=== PATIENT | male | born 1970 | race African-American/Black ===

== ENCOUNTER 2023-10-14 04:03 | Emergency (ER) | payer BC ==
[2023-10-14 07:08] LABS: Absolute Eosinophils 0.1 K/uL (0-0.5); Absolute Lymphocytes (CBC) 1.1 K/uL (0.7-4.9); Absolute Neutrophil 11.7 K/uL (1.8-8.0); Basophils % 0.1 % (0-1.3); Eosinophils % 0.5 % (0-4.4); Hematocrit 44.7 % (39.6-49.0); Hemoglobin 14.6 g/dL (13.6-17.9); Lymphocytes % 7.8 % (15.3-44.8); MCHC 32.6 g/dL (32.0-36.0); MCV 82.7 fL (80-100); MPV 9.3 fL (7.6-11.3); Monocytes % 7.4 % (3.3-12.3); Neutrophils % 84.2 % (41.7-73.7); Platelets 260 thou/uL (152-406); Red Cell Distribution Width 15.5 % (12.1-15.2)
[2023-10-14 07:10] LABS: Albumin 3.7 g/dL (3.4-5.0); Albumin/Globulin Ratio 0.8 (1.1-1.8); Anion Gap 9.6 mEq/L (5.0-15.0); Bilirubin Total 0.4 mg/dL (0.2-1.0); Globulin 4.5 g/dL (2.3-3.5); Potassium 3.6 mEq/L (3.5-5.1); Protein, Total 8.2 g/dL (6.4-8.2); Specific Gravity 1.028 (1.005-1.030); Sqamous Epithelial None Seen /HPF (None Seen); Urine Bacteria None Seen /HPF (<20); Urine Bilirubin NEGATIVE (Negative); Urine Blood 2+ (Negative); Urine Clarity Clear (Clear); Urine Color Yellow (Yellow); Urine Culture Reflex Order NOT NEEDED; Urine Glucose NEGATIVE (Negative); Urine Ketones 2+ (Negative); Urine Microscopic Reflex YN ORDER UMIC; Urine Mucus 2+ /HPF (None Seen); Urine Nitrite NEGATIVE (Negative); Urine Protein TRACE (Negative); Urine RBC 21-50 /HPF (None Seen); Urine Urobilinogen Normal (Normal); Urine WBC <5 /HPF (<5)
--- NOTE | 2023-10-14 08:07 | RAD REPORT ---
EXAM DESCRIPTION: CT - Abdomen Pelvis W Contrast - 10/14/2023 7:27 am CLINICAL HISTORY: ABD PAIN COMPARISON: No comparisons TECHNIQUE: Thin cut axial CT imaging of the abdomen and pelvis was performed following intravenous a dministration of 100 mL Isovue 300. Multiplanar reformats were generated and reviewed. All CT scans are performed using dose optimization technique as appropriate and may include automated exposure control or mA/KV adjustment according to patient size. FINDINGS: No suspicious findings in the lung bases. The liver, spleen, adrenal glands, and pancreas show no suspicious findings. Gallbladder and biliary tree are also without suspicious finding. Symmetric renal function is seen with no hydronephrosis or suspicious renal mass. Along the left dist al ureter. The vesicoureteral junction, a 2 mm calculus is noted, without significant hydro ureter. F luid density right mid to lower pole anterior 2.4 cm cyst, benign in appearance. Sequelae of gastric bypass. No dilated bowel loops or bowel wall thickening. Appendix is unremarkable . No free air, free fluid or inflammatory stranding. No hernia, mass or bulky lymphadenopathy. The ur inary bladder is without significant finding. No suspicious bony findings. Left hip arthroplasty hardware resulting in streak artifact which limits evaluation. IMPRESSION: Likely nonobstructing left distal ureter 2 mm calculus near the vesicoureteral junction, without appreciable hydroureteronephrosis. No other acute intra- abdominal process.
--- NOTE | 2023-10-14 08:16 | ER ---
Nurse's Notes [facility] Name: Manolo Cole Age: 53 yrs Sex: Male : 1970 Arrival Date: 10/14/2023 Time: 04:03 Bed 8 Private MD: Diagnosis: Calculus of ureter Presentation: 10/13 04:48 Chief complaint: Patient states: stomach pain, n/v since yesterday. Coronavirus screen: vc1 Vaccine status: Client presents with at least one sign or symptom that may indicate coronavirus-19. Client reports previous positive COVID test result. Date of collection: October 12, 2023 Staff notified of need for isolation. Ebola Screen: Patient negative for fever greater than or equal to 101.5 degrees Fahrenheit, and additional compatible Ebola Virus Disease symptoms Patient denies exposure to infectious person. Patient denies travel to an Ebola-affected area in the 21 days before illness onset. No symptoms or risks identified at this time. Risk Assessment: Do you want to hurt yourself or someone else? Patient reports no desire to harm self or others. Onset of symptoms was October 13, 2023. 04:48 Method Of Arrival: Ambulatory vc1 04:48 Acuity: VIN 3 vc1 04:55 Initial Sepsis Screen: Does the patient meet any 2 criteria? No. Patient's initial jw7 sepsis screen is negative. Does the patient have a suspected source of infection? No. Patient's initial sepsis screen is negative. Triage Assessment: 04:52 General: Appears in no apparent distress. uncomfortable, obese, Behavior is calm, vc1 cooperative, appropriate for age. Pain: Complains of pain in anterior aspect of right lateral abdomen Pain does not radiate. Pain currently is 10 out of 10 on a pain scale. Quality of pain is described as sharp, Pain began suddenly, 1 day ago. Is intermittent. Neuro: Level of Consciousness is awake, alert, obeys commands, Oriented to person, place, time, situation, Appropriate for age. Cardiovascular: Patient's skin is warm and dry. Respiratory: Airway is patent Respiratory effort is even, unlabored, Respiratory pattern is regular, symmetrical. GI: Abdomen is round non-distended, Reports lower abdominal pain, upper abdominal pain, constipation, intolerance of fluids, intolerance of food, nausea, vomiting. : Reports inability to void, urgency. Historical: - Allergies: 04:50 No Known Allergies; vc1 - Home Meds: 04:50 valsartan oral [Active]; semiglutide [Active]; vc1 - PMHx: 04:50 Hypertensive disorder; vc1 - PSHx: 04:50 gastric sleeve; vc1 - Immunization history:: Adult Immunizations unknown. - Infectious Disease History:: Denies. - Social history:: Smoking status: Patient denies any tobacco usage or history of. - Family history:: not pertinent. Screenin:[address] [facility] ED Fall Risk Assessment (Adult) History of falling in the last 3 months, vc1 including since admission No falls in past 3 months (0 pts) Confusion or Disorientation No (0 pts) Intoxicated or Sedated No (0 pts) Impaired Gait No (0 pts) Mobility Assist Device Used No (0 pt) Altered Elimination No (0 pt) Score/Fall Risk Level 0 - 2 = Low Risk Oriented to surroundings, Maintained a safe environment, Educated pt \T\ family on fall prevention, incl call for assistance when getting out of bed. Abuse screen: Denies threats or abuse. Nutritional screening: No deficits noted. Tuberculosis screening: No symptoms or risk factors identified. Assessment: 04:55 General: Appears in no apparent distress. comfortable, Behavior is calm, cooperative, jj7 appropriate for age. Pain: Denies pain. GI: Abdomen is obese, Abd is soft and non tender X 4 quads. Abd is non tender X 4 quads Reports upper abdominal pain, nausea, vomiting. 06:13 Reassessment: Patient appears in no apparent distress at this time. No changes from jw7 previously documented assessment. Patient and/or family updated on plan of care and expected duration. Pain level reassessed. Patient is alert, oriented x 3, equal unlabored respirations, skin warm/dry/pink. Vital Signs: 04:48 BP 141 / 74; Pulse 82; Resp 16; Temp 97.5; Pulse Ox 97% ; Weight 147.42 kg; Height 5 jj7 ft. 11 in. ; Pain 10/10; 05:59 BP 129 / 79; Pulse 79; Resp 19; Pulse Ox 96% ; jj7 08:46 BP 132 / 78; Pulse 85; Resp 18; Temp 98; Pulse Ox 99% on R/A; ph 04:48 Body Mass Index 45.33 (147.42 kg, 180.34 cm) jj7 04:48 Pain Scale: Adult jj7 ED Course: 04:15 Patient arrived in ED. gm2 04:17 Wilton Mcintosh MD is Attending Physician. sp4 04:50 Triage completed. vc1 04:52 Arm band placed on left wrist. vc1 04:55 Patient has correct armband on for positive identification. Bed in low position. Call jw7 light in reach. Provided Education on: Use of Call Light. 04:55 Inserted saline lock: 20 gauge in right antecubital area, using aseptic technique. jj7 Blood collected. 05:00 Initial lab(s) drawn, by ms, sent to lab. Urine collected: clean catch specimen, clear. jj7 07:12 Report given to ARIANNA DIANE. jj7 07:16 Attending Physician role handed off by Wilton Mcintosh MD ec2 07:16 Nestor Smith MD is Attending Physician. ec2 07:28 CT Abd/Pelvis - IV Contrast Only In Process Unspecified. EDMS 08:16 Israel Madden MD is Referral Physician. ec2 08:29 Cathryn Guillen, BENEDICTO is Primary Nurse. ph 08:46 No provider procedures requiring assistance completed. IV discontinued, intact, ph bleeding controlled, No redness/swelling at site. Pressure dressing applied. Administered Medications: 05:00 Drug: NS 0.9% IV 1000 ml IV at 1 bolus Per protocol; 1000 mL bolus Route: IV; Rate: 1 jj7 bolus; Site: right antecubital; 06:51 Follow up: Response: No adverse reaction; IV Status: Completed infusion; IV Intake: jw7 1000ml 05:00 Drug: Ondansetron IVP 4 mg IVP once; over 2 minutes Route: IVP; Site: right antecubital;jj7 06:51 Follow up: Response: No adverse reaction; Marked relief of symptoms; Nausea is decreasedjw7 08:35 Drug: morphine IVP or IV 4 mg IVP once over 4 mins Route: IVP; Infused Over: 4 mins; ph Site: right antecubital; 08:45 Follow up: Response: No adverse reaction ph 08:35 Drug: Ketorolac IVP 15 mg IVP once Route: IVP; Site: left antecubital; ph 08:45 Follow up: Response: No adverse reaction ph Medication: 04:55 VIS not applicable for this client. jj7 Intake: 06:51 IV: 1000ml; Total: 1000ml. jw7 Outcome: 08:16 Discharge ordered by ec2 08:46 Discharged to home ambulatory, with significant other, ph 08:46 Condition: good 08:46 Discharge instructions given to patient, Instructed on discharge instructions, follow up and referral plans. medication usage, Demonstrated understanding of instructions, follow-up care, medications, Prescriptions given X 2, 08:47 Patient left the ED. ph Signatures: Dispatcher [employer] EDMS Cathryn Guillen RN RN ph Monika Cisneros RN RN vc1 Odette Aldridge RN BENEDICTO jw7 Allen Juarez RN RN jj7 Wilton Mcintosh MD MD sp4 Nestor Smith MD MD ec2 Amber Sears 2 Corrections: (The following items were deleted from the chart) 05:07 04:48 Temp 97.5F; 147.42 kg; Height 5 ft. 11 in.; BMI: 45.3; Pain 10/10, Adult; vc1 jj7
--- NOTE | 2023-10-14 08:16 | EDPHYS ---
Physician Documentation [facility] Name: Manolo Sheffield Age: 53 yrs Sex: Male : 1970 Arrival Date: 10/14/2023 Time: 04:03 Bed 8 Private MD: ED Physician Nestor Smith HPI: 10/13 04:17 This 31 yrs old Male presents to ER via Unassigned with complaints of gen sp4 Complaint . 21:21 Very pleasant 31-year-old male presents with acute onset left-sided abdominal and flank sp4 pain starting this morning. This was associated with vomiting. . Historical: - Allergies: 04:50 No Known Allergies; vc1 - Home Meds: 04:50 valsartan oral [Active]; semiglutide [Active]; vc1 - PMHx: 04:50 Hypertensive disorder; vc1 - PSHx: 04:50 gastric sleeve; vc1 - Immunization history:: Adult Immunizations unknown. - Infectious Disease History:: Denies. - Social history:: Smoking status: Patient denies any tobacco usage or history of. - Family history:: not pertinent. ROS: 21:21 Constitutional: Negative for fever, chills, and weight loss, Abdomen/GI: Positive for sp4 left-sided abdominal pain and vomiting 21:21 All other systems are negative, Exam: 21:21 Constitutional: This is a well developed, well nourished patient who is awake, alert, sp4 and in no acute distress. Head/Face: Normocephalic, atraumatic. Eyes: Pupils equal round and reactive to light, extra-ocular motions intact. Lids and lashes normal. Conjunctiva and sclera are not injected. Cornea within normal limits. Periorbital areas with no swelling, redness, or edema. ENT: Nares patent. No nasal discharge, no septal abnormalities noted. Tympanic membranes are normal and external auditory canals are clear. Oropharynx with no redness, swelling, or masses, exudates, or evidence of obstruction, uvula midline. Mucous membranes moist. Neck: Trachea midline, no thyromegaly or masses palpated, and no cervical lymphadenopathy. Supple, full range of motion without nuchal rigidity, or vertebral point tenderness. Chest/axilla: Normal chest wall appearance and motion. Nontender with no deformity. No lesions are appreciated. Cardiovascular: Regular rate and rhythm with a normal S1 and S2. No gallops, murmurs, or rubs. Normal PMI, no JVD. No pulse deficits. Respiratory: Lungs have equal breath sounds bilaterally, clear to auscultation and percussion. No rales, rhonchi or wheezes noted. No increased work of breathing, no retractions or nasal flaring. Abdomen/GI: Soft, with normal bowel sounds. No distension or tympany. No guarding or rebound. No evidence of tenderness throughout. Back: No spinal tenderness. No costovertebral tenderness. Skin: Warm, dry with normal turgor. Normal color with no rashes, no lesions, and no evidence of cellulitis. MS/ Extremity: Pulses equal, no cyanosis. Neurovascular intact. Full, normal range of motion. Neuro: Awake and alert, GCS 15, oriented to person, place, time, and situation. Cranial nerves II-XII grossly intact. Motor strength 5/5 in all extremities. Sensory grossly intact. Psych: Awake, alert, with orientation to person, place and time. Behavior, mood, and affect are within normal limits Vital Signs: 04:48 BP 141 / 74; Pulse 82; Resp 16; Temp 97.5; Pulse Ox 97% ; Weight 147.42 kg; Height 5 jj7 ft. 11 in. ; Pain 10/10; 05:59 BP 129 / 79; Pulse 79; Resp 19; Pulse Ox 96% ; jj7 08:46 BP 132 / 78; Pulse 85; Resp 18; Temp 98; Pulse Ox 99% on R/A; ph 04:48 Body Mass Index 45.33 (147.42 kg, 180.34 cm) jj7 04:48 Pain Scale: Adult jj7 MDM: 04:21 Patient medically screened. sp4 07:16 Data reviewed: vital signs. Transition of care: Care assumed from Wilton Mcintosh MD. ec2 ED course: Patient signed out to me by. Physician, in brief patient arrives today for flank pain, left-sided, plan is follow-up imaging and reassess patient.. 07:22 ED course: CBC shows slight leukocytosis. Metabolic profile is reassuring. Lipase ec2 within normal ranges, urine is noninfectious appearing. Does have RBCs present. Pending CT imaging. 08:15 ED course: CT imaging shows nonobstructing 2 mm ureteral stone. Will discharge home ec2 with medication for pain, have patient follow-up with urology. Return precautions given. 21:20 ED course: Name: MANOLO SHEFFIELD Acct Number: [id number] :1970 Age:53 sp4 Sex:M Ord Phys: Wilton Mcintosh MD Unit Number: [id number] Prim Care Dr: Bria Armenta DO Status: REG ER ER Exam Date: 10/14/23 EXAM DESCRIPTION: CT - Abdomen Pelvis W Contrast - 10/14/2023 7:27 am CLINICAL HISTORY: ABD PAIN COMPARISON: No comparisons TECHNIQUE: Thin cut axial CT imaging of the abdomen and pelvis was performed following intravenous administration of 100 mL Isovue 300. Multiplanar reformats were generated and reviewed. All CT scans are performed using dose optimization technique as appropriate and may include automated exposure control or mA/KV adjustment according to patient size. FINDINGS: No suspicious findings in the lung bases. The liver, spleen, adrenal glands, and pancreas show no suspicious findings. Gallbladder and biliary tree are also without suspicious finding. Symmetric renal function is seen with no hydronephrosis or suspicious renal mass. Along the left distal ureter. The vesicoureteral junction, a 2 mm calculus is noted, without significant hydro ure ter. Fluid density right mid to lower pole anterior 2.4 cm cyst, benign in appearance. Sequelae of gastric bypass. No dilated bowel loops or bowel wall thickening. Appendix is unremarkable. No free air, free fluid or inflammatory stranding. No hernia, mass or bulky lymphadenopathy. The urinary bladder is without significant finding. No suspicious bony findings. Left hip arthroplasty hardware resulting in streak artifact which limits evaluation. IMPRESSION: Likely non obstructing left distal ureter 2 mm calculus near the vesicoureteral junction, without appreciable hydroureteronephrosis. No other acute intra- abdominal process.. 21:22 Differential Diagnosis altered mental status, sepsis, flu, Diverticulitis . Data sp4 reviewed: nurses notes, old medical records, lab test result(s), radiologic studies, CT scan. Consideration of Admission/Observation Escalation of care including admission/observation considered. 10/13 04:21 Order name: CBC with Diff; Complete Time: 07:22 sp4 10/13 04:21 Order name: CMP; Complete Time: 07:22 sp4 10/13 04:21 Order name: Lipase; Complete Time: 07:22 sp4 10/13 04:21 Order name: Urinalysis w/ reflexes sp4 10/13 04:21 Order name: CT Abd/Pelvis - IV Contrast Only; Complete Time: 08:17 sp4 10/13 04:21 Order name: IV Saline Lock; Complete Time: 05:08 sp4 10/13 04:21 Order name: Labs collected and sent; Complete Time: 05:08 sp4 Administered Medications: 05:00 Drug: NS 0.9% IV 1000 ml IV at 1 bolus Per protocol; 1000 mL bolus Route: IV; Rate: 1 jj7 bolus; Site: right antecubital; 06:51 Follow up: Response: No adverse reaction; IV Status: Completed infusion; IV Intake: jw7 1000ml 05:00 Drug: Ondansetron IVP 4 mg IVP once; over 2 minutes Route: IVP; Site: right antecubital;jj7 06:51 Follow up: Response: No adverse reaction; Marked relief of symptoms; Nausea is decreasedjw7 08:35 Drug: morphine IVP or IV 4 mg IVP once over 4 mins Route: IVP; Infused Over: 4 mins; ph Site: right antecubital; 08:45 Follow up: Response: No adverse reaction ph 08:35 Drug: Ketorolac IVP 15 mg IVP once Route: IVP; Site: left antecubital; ph 08:45 Follow up: Response: No adverse reaction ph Disposition Summary: 10/14/23 08:16 Discharge Ordered Notes: Location: Home ec2 Condition: Stable ec2 Diagnosis - Calculus of ureter ec2 Followup: ec2 - With: Israel Madden MD - When: - Reason: Recheck today's complaints Discharge Instructions: - Discharge Summary Sheet ec2 - Kidney Stones ec2 Forms: - Medication Reconciliation Form ec2 - Thank You Letter ec2 - Antibiotic Education ec2 - Prescription Opioid Use ec2 - Patient Portal Instructions ec2 - Leadership Thank You Letter ec2 Prescriptions: - acetaminophen-codeine 300-15 mg Oral tablet - take 1 tablet ORAL route every 8 hours; 10 tablet; Refills: 0, Product ec2 Selection Permitted - tamsulosin 0.4 mg Oral capsule - take 1 capsule ORAL route every 24 hours; 14 capsule; Refills: 0, Product ec2 Selection Permitted Signatures: Dispatcher [employer] Cathryn Nino RN RN ph Monika Cisneros RN RN vc1 Allen Juarez RN RN jj7 Wilton Mcintosh MD MD sp4 Nestor Simth MD MD ec2 Odette Aldridge RN jw7 Corrections: (The following items were deleted from the chart) 07:06 07:06 CBC+H.LAB.BRZ ordered. EDMS EDMS 07:06 07:06 COMPREHENSIVE METABOLIC PANEL+C.LAB.BRZ ordered. EDMS EDMS 07:06 07:06 LIPASE+C.LAB.BRZ ordered. EDMS EDMS 07:06 07:06 Urinalysis+U.LAB.BRZ ordered. EDMS EDMS 07:06 07:06 Abdomen Pelvis W Con+CT.RAD.BRZ ordered. EDMS EDMS
[2023-10-14] MEDS ORDERED: MORPHINE 4 MG/ML SYR ONE (08:31)
[2023-10-14] MEDS ORDERED: KETOROLAC 30 MG/ML INJ ONE (08:31)
[2023-10-14 15:38] VITALS: BP 132/78; TEMP 98; O2SAT 99
== END 2023-10-14 08:47 | disposition home or self-care (01) ==
LOC: ER 04:03
DX: N20.1 Calculus of ureter (principal); I10 Essential (primary) hypertension
CPT/HCPCS: 85025; 81001; 36415; 83690; 80053; 74177; Q9967